=== PATIENT | male | born 1965 | race Caucasian/White ===

== ENCOUNTER 2016-09-14 10:59 | Emergency (ER) | payer BC | END 2016-09-14 12:15 | disposition home or self-care (01) | LOC: ER1 10:59 | DX: L02.31 Cutaneous abscess of buttock (principal); I10 Essential (primary) hypertension; R22.0 Localized swelling, mass and lump, head | CPT/HCPCS: 10061; 82962; 87070; 87205; 99283 ==

== ENCOUNTER → 2020-09-16 | Outpatient (CLI) | payer BC, OTHER ==
[~2020-09-16] MED LIST: ASPIRIN81 MG PO; CARDIZEM CD240 MG PO; COREG3.125 MG PO; NORVASC10 MG PO; WELLBUTRIN XL150 MG PO
[2020-09-16 09:49] LABS: HEMOGLOBIN 16.8 gm/dl (14.0-17.5); RED BLOOD COUNT 5.78 M/UL (4.20-5.50); WHITE BLOOD COUNT 8.5 K/UL (4.5-11.0)
[2020-09-16 10:07] LABS: BUN/CREATININE RATIO 16 (0-10)
[2020-09-18 03:07] LABS: CREATININE, URINE 22.3 mg/dL (Not Estab.)
== END ==
LOC: RAD 09:02
PROVIDERS: Family Medicine
DX: R06.00 Dyspnea, unspecified (principal); M54.12 Radiculopathy, cervical region; E11.9 Type 2 diabetes mellitus without complications; C95.90 Leukemia, unspecified not having achieved remission; M47.812 Spondylosis without myelopathy or radiculopathy, cervical region
CPT/HCPCS: 36415; 71046; 72050; 80053; 80061; 82043; 82570; 83036; 85025

== ENCOUNTER → 2021-07-03 | Outpatient (CLI) | payer BC ==
[2021-07-03 12:14] LABS: HEMOGLOBIN 16.8 gm/dl (14.0-17.5); RED BLOOD COUNT 5.85 M/UL (4.20-5.50); WHITE BLOOD COUNT 6.8 K/UL (4.5-11.0)
[2021-07-03 12:45] LABS: BUN/CREATININE RATIO 14 (0-10)
== END ==
LOC: CT 06-20 14:30
PROVIDERS: Internal Medicine Hematology & Oncology
DX: C21.0 Malignant neoplasm of anus, unspecified (principal); C91.10 Chronic lymphocytic leukemia of B-cell type not having achieved remission; N28.89 Other specified disorders of kidney and ureter
CPT/HCPCS: 36415; 80053; 83615; 84550; 85025

== ENCOUNTER → 2021-07-11 | Outpatient (CLI) | payer BC | LOC: CT 08:42 | DX: C21.0 Malignant neoplasm of anus, unspecified (principal); C91.10 Chronic lymphocytic leukemia of B-cell type not having achieved remission; N28.89 Other specified disorders of kidney and ureter; K76.0 Fatty (change of) liver, not elsewhere classified; N28.1 Cyst of kidney, acquired | CPT/HCPCS: Q9967 ==

== ENCOUNTER → 2021-08-14 | Outpatient (CLI) | payer BC ==
[~2021-08-14] MED LIST changes: +AMOX TR-K CLV1 EAC4 PO; +BACLOFEN10 MG PO; +CARVEDILOL25 MG PO; +CARVEDILOL3.125 MG PO; +CETIRIZINE HCL10 MG PO; +DILTIAZEM 24HR120 M1 PO; +GABAPENTIN100 MG PO; +HUMULIN 70100 UNIT/2 SC; +LIDOCAINE1 EAC1 EXT; +MELOXICAM7.5 MG PO; +METOCLOPRAMIDE10 MG PO; +MONTELUKAST SOD10 MG PO; +NOVOLIN R100 UNIT/1 INJ; +NOVOLOG MI100 UNIT/1 SQ; +OMEPRAZOLE20 MG PO; +OZEMPIC0.25 MG/0. SQ; +PRAVASTATIN SOD40 MG PO; +PROAIR HFA8.5 GM INH; +PROTONIX40 MG PO; +XARELTO20 MG PO; +ZOFRAN ODT 4 MG4 MG PO
== END ==
LOC: DTC 13:11
DX: Z71.3 Dietary counseling and surveillance (principal); E66.3 Overweight
CPT/HCPCS: G0109

== ENCOUNTER 2021-08-24 17:57 | Emergency (ER) | payer BC ==
[~2021-08-24 17:57] MED LIST changes: -AMOX TR-K CLV1 EAC4 PO; -BACLOFEN10 MG PO; -CARVEDILOL25 MG PO; -CARVEDILOL3.125 MG PO; -CETIRIZINE HCL10 MG PO; -DILTIAZEM 24HR120 M1 PO; -GABAPENTIN100 MG PO; -HUMULIN 70100 UNIT/2 SC; -LIDOCAINE1 EAC1 EXT; -MELOXICAM7.5 MG PO; -METOCLOPRAMIDE10 MG PO; -MONTELUKAST SOD10 MG PO; -NOVOLIN R100 UNIT/1 INJ; -NOVOLOG MI100 UNIT/1 SQ; -OMEPRAZOLE20 MG PO; -OZEMPIC0.25 MG/0. SQ; -PRAVASTATIN SOD40 MG PO; -PROAIR HFA8.5 GM INH; -PROTONIX40 MG PO; -XARELTO20 MG PO; -ZOFRAN ODT 4 MG4 MG PO
[2021-08-24 18:53] LABS: HEMOGLOBIN 17.2 gm/dl (14.0-17.5); RED BLOOD COUNT 6.05 M/UL (4.20-5.50); WHITE BLOOD COUNT 10.4 K/UL (4.5-11.0)
[2021-08-24 19:20] LABS: BUN/CREATININE RATIO 12 (0-10)
[2021-08-24] MEDS ORDERED: ZOFRAN ODT 4 MG4 MG PO (21:05)
== END 2021-08-24 21:30 | disposition home or self-care (01) ==
LOC: ER1 17:57
PROVIDERS: Family Medicine
DX: R11.2 Nausea with vomiting, unspecified (principal); R06.6 Hiccough; E11.40 Type 2 diabetes mellitus with diabetic neuropathy, unspecified; I48.91 Unspecified atrial fibrillation; Z79.01 Long term (current) use of anticoagulants; F17.200 Nicotine dependence, unspecified, uncomplicated
CPT/HCPCS: 80053; 81001; 82550; 82553; 83690; 84484; 85025; 96374; 99284; J2405

== ENCOUNTER 2021-08-28 17:44 | Inpatient (IN) | payer BC ==
[~2021-08-28] VITALS: Ht 177.8 cm; Wt 107.1 kg
[~2021-08-28 17:44] MED LIST changes: +ZOFRAN ODT 4 MG4 MG PO
[2021-08-28 18:26] LABS: HEMOGLOBIN 16.1 gm/dl (14.0-17.5); RED BLOOD COUNT 5.6 M/UL (4.20-5.50); WHITE BLOOD COUNT 8.1 K/UL (4.5-11.0)
[2021-08-28 18:57] LABS: BUN/CREATININE RATIO 12 (0-10)
[2021-08-29 03:00] LABS: HEMOGLOBIN 15.1 gm/dl (14.0-17.5); RED BLOOD COUNT 5.38 M/UL (4.20-5.50); WHITE BLOOD COUNT 8.2 K/UL (4.5-11.0)
[2021-08-29 03:30] LABS: BUN/CREATININE RATIO 11 (0-10)
[2021-08-29] MEDS ORDERED: NOVOLIN R100 UNIT/1 INJ (10:12)
[2021-08-29] MEDS ORDERED: NOVOLOG MI100 UNIT/1 SQ (10:14)
[2021-08-29] MEDS ORDERED: PROAIR HFA8.5 GM INH (10:15)
[2021-08-29] MEDS ORDERED: CARVEDILOL3.125 MG PO (10:16)
[2021-08-29] MEDS ORDERED: CARVEDILOL25 MG PO (10:16)
[2021-08-29] MEDS ORDERED: GABAPENTIN100 MG PO (10:17)
[2021-08-29] MEDS ORDERED: LIDOCAINE1 EAC1 EXT (10:18)
[2021-08-29] MEDS ORDERED: MONTELUKAST SOD10 MG PO (10:19)
[2021-08-29] MEDS ORDERED: MELOXICAM7.5 MG PO (10:19)
[2021-08-29] MEDS ORDERED: OMEPRAZOLE20 MG PO (10:20)
[2021-08-29] MEDS ORDERED: PRAVASTATIN SOD40 MG PO (10:21)
[2021-08-29] MEDS ORDERED: XARELTO20 MG PO (10:22)
[2021-08-29] MEDS ORDERED: CETIRIZINE HCL10 MG PO (10:23)
[2021-08-29] MEDS ORDERED: OZEMPIC0.25 MG/0. SQ (10:50)
[2021-08-29] MEDS ORDERED: HUMULIN 70100 UNIT/2 SC (10:58)
--- NOTE | 2021-08-29 14:37 | NUR ---
REPORT GIVEN TO [facility] AT THIS TIME.
[2021-08-30 06:07] LABS: HEMOGLOBIN 15.6 gm/dl (14.0-17.5); RED BLOOD COUNT 5.54 M/UL (4.20-5.50); WHITE BLOOD COUNT 8.1 K/UL (4.5-11.0)
[2021-08-30 06:47] LABS: BUN/CREATININE RATIO 11 (0-10)
[2021-08-31 03:40] LABS: BUN/CREATININE RATIO 17 (0-10)
[2021-08-31] MEDS ORDERED: METOCLOPRAMIDE10 MG PO (09:18)
[2021-08-31] MEDS ORDERED: BACLOFEN10 MG PO (09:18)
[2021-08-31] MEDS ORDERED: PROTONIX40 MG PO (09:18)
[2021-08-31] MEDS ORDERED: AMOX TR-K CLV1 EAC4 PO (09:18)
[2021-08-31] MEDS ORDERED: DILTIAZEM 24HR120 M1 PO (09:18)
== END 2021-08-31 11:43 | disposition home or self-care (01) | DRG 204 ==
LOC: ER1 17:44 → MED SURG 4 21:11 → CDU 21:11 → MED SURG 4 23:46
PROVIDERS: Emergency Medicine; Internal Medicine; Physician Assistant Medical; ADMIT Internal Medicine
PROC: B24BZZZ Ultrasonography of Heart with Aorta (ICD-10-PCS; principal; 2021-08-30)
DX: R06.6 Hiccough (principal); C91.10 Chronic lymphocytic leukemia of B-cell type not having achieved remission; E87.1 Hypo-osmolality and hyponatremia; Z20.822 Contact with and (suspected) exposure to COVID-19; R11.2 Nausea with vomiting, unspecified; K21.9 Gastro-esophageal reflux disease without esophagitis; M54.9 Dorsalgia, unspecified; E11.9 Type 2 diabetes mellitus without complications; F17.210 Nicotine dependence, cigarettes, uncomplicated; I48.0 Paroxysmal atrial fibrillation; H92.02 Otalgia, left ear; E78.5 Hyperlipidemia, unspecified; E66.9 Obesity, unspecified; R74.01 Elevation of levels of liver transaminase levels; K59.00 Constipation, unspecified; G89.29 Other chronic pain; E86.0 Dehydration; H66.90 Otitis media, unspecified, unspecified ear; Z79.01 Long term (current) use of anticoagulants; Z85.048 Personal history of other malignant neoplasm of rectum, rectosigmoid junction, and anus; Z90.49 Acquired absence of other specified parts of digestive tract; Z83.3 Family history of diabetes mellitus; Z68.33 Body mass index [BMI] 33.0-33.9, adult
CPT/HCPCS: ECHO; 0241U; 36415; 70450; 70551; 71045; 80048; 80053; 80061; 80307; 81001; 82140; 82550; 82553; 82962; 83605; 83690; 83735; 84100; 84439; 84443; 84484; 85025; 85027; 86140; 93270; 93306; 94664; 94760; 96372; 96374; 96375; 96376; 99285; C9113; G0378; J1650; J2405; J2550

== ENCOUNTER → 2022-01-29 | Outpatient (CLI) | payer BC ==
[~2022-01-29] MED LIST changes: +AMOX TR-K CLV1 EAC4 PO; +BACLOFEN10 MG PO; +CARVEDILOL25 MG PO; +CARVEDILOL3.125 MG PO; +CETIRIZINE HCL10 MG PO; +DILTIAZEM 24HR120 M1 PO; +GABAPENTIN100 MG PO; +HUMULIN 70100 UNIT/2 SC; +LIDOCAINE1 EAC1 EXT; +MELOXICAM7.5 MG PO; +METOCLOPRAMIDE10 MG PO; +MONTELUKAST SOD10 MG PO; +NOVOLIN R100 UNIT/1 INJ; +NOVOLOG MI100 UNIT/1 SQ; +OMEPRAZOLE20 MG PO; +OZEMPIC0.25 MG/0. SQ; +PRAVASTATIN SOD40 MG PO; +PROAIR HFA8.5 GM INH; +PROTONIX40 MG PO; +XARELTO20 MG PO
[2022-01-29 17:18] LABS: HEMOGLOBIN 17.4 gm/dl (14.0-17.5); RED BLOOD COUNT 6.03 M/UL (4.20-5.50); WHITE BLOOD COUNT 11.1 K/UL (4.5-11.0)
[2022-01-29 18:13] LABS: BUN/CREATININE RATIO 13 (0-10)
== END ==
LOC: LAB 16:55
PROVIDERS: Family Medicine
DX: E11.65 Type 2 diabetes mellitus with hyperglycemia (principal)
CPT/HCPCS: 36415; 80053; 82043; 83036; 84443; 85025